=== PATIENT | female | born 1965 | race Caucasian/White ===

== ENCOUNTER 2017-05-31 15:31 | Outpatient (CLI) | payer BC | END 2017-05-31 15:32 | disposition home or self-care (01) | LOC: BICMAMMO 15:31 | PROVIDERS: ATTEND Family Medicine | DX: Z12.31 Encounter for screening mammogram for malignant neoplasm of breast (principal); Z80.3 Family history of malignant neoplasm of breast | CPT/HCPCS: 77063; 77067 ==

== ENCOUNTER 2018-08-16 10:04 | Outpatient (CLI) | payer OTHER ==
--- NOTE | 2018-08-16 10:56 | ULT ---
EXAM: US Abdominal CLINICAL HISTORY: Ectasia/dilatation of the aorta. COMPARISON: None. FINDINGS: Pancreas: Normal. The remainder the pancreas is obscured by bowel gas. IVC: Unremarkable Aorta: No evidence of dilatation. Visualized aorta does not have any ectasia. Maximum diameter appear s to be at the level of proximal aorta measuring 2.1 cm along the sagittal plane. Liver:Normal echotexture. No hepatic masses or intrahepatic biliary dilatation. The contour of the he patic margins maintained. Right hepatic lobe measures 14.4 cm. Portal vein: Patent Gallbladder: No sonographic evidence of cholelithiasis, gallbladder wall thickening or pericholecysti c fluid. Cruz's sign:Negative CBD: 0.3 cm common bile duct diameter Right kidney: No hydronephrosis. Right kidney measuring 5.2 x 10.4 x 5.4 cm in length. Left kidney: No hydronephrosis. Left kidney measuring 10.0 x 5.4 x 5.8 cm. Anechoic focus in the upp er pole measuring 1 cm, likely represent a cortical cyst. cm in length Spleen: Normal echotexture. IMPRESSION: 1. Normal caliber aorta. No sonographic evidence of abdominal aortic dilatation. 2. No hydronephrosis. Left renal cortical cyst 3. No sonographic evidence of cholelithiasis or cholecystitis.
== END 2018-08-16 10:05 | disposition home or self-care (01) ==
LOC: SCSULT 10:04
PROVIDERS: ATTEND Family Medicine
DX: I77.811 Abdominal aortic ectasia (principal); N28.1 Cyst of kidney, acquired
CPT/HCPCS: 76700